=== PATIENT | male | born 1980 | race Hispanic/Latino ===

== ENCOUNTER 2017-08-09 00:55 | Inpatient (IN) | payer MEDICAID, OTHER ==
--- NOTE | 2017-08-09 01:07 | C.PDOC ---
History Of Present Illness 37 year old male who presents to the ER as a transfer from [facility] for psychiatric admission. Denies physical complaints at this time. Chief Complaint (Nursing): Psychiatric Evaluation History Per: Patient History/Exam Limitations: no limitations Onset/Duration Of Symptoms: Days Current Symptoms Are (Timing): Still Present Suicide/Self Injury Attempted (Context): None Modifying Factor(s): None Involuntary Hold By: None Recent travel outside of the [place]: No Past Medical History Reviewed: Historical Data, Nursing Documentation, Vital Signs Vital Signs: Last Vital Signs Temp 98.4 F 08/09/17 01:01 Pulse 72 08/09/17 01:01 Resp 18 08/09/17 01:01 BP 130/82 08/09/17 01:01 Pulse Ox 100 08/09/17 01:01 Surgical History: No Surg Hx Family History: States: Unknown Family Hx Review Of Systems Constitutional: Negative for: Fever, Chills Gastrointestinal: Negative for: Nausea, Vomiting, Diarrhea Physical Exam - Physical Exam Appears: Non-toxic, No Acute Distress Skin: Normal Color, Warm, Dry Head: Atraumatic, Normacephalic Oral Mucosa: Moist Chest: Symmetrical, No Tenderness Cardiovascular: Rhythm Regular, No Murmur Respiratory: Normal Breath Sounds, No Rales, No Rhonchi, No Wheezing Gastrointestinal/Abdominal: Soft, No Tenderness Neurological/Psych: Oriented x3, Normal Speech, Normal Cognition ED Course And Treatment Progress Note: Crisis notified. Disposition Discussed With : Matthew Christine Doctor Will See Patient In The: Hospital Counseled Patient/Family Regarding: Diagnosis - Disposition Disposition: HOSPITALIZED Disposition Time: 01:06 Condition: STABLE Forms: [facility] (Burkinan) - POA Present On Arrival: None - Clinical Impression Clinical Impression: Depressive disorder, Opiate abuse, continuous - Scribe Statement The provider has reviewed the documentation as recorded by the Scribe Rajan Morales All medical record entries made by the Scribe were at my direction and personally dictated by me. I have reviewed the chart and agree that the record accurately reflects my personal performance of the history, physical exam, medical decision making, and the department course for this patient. I have also personally directed, reviewed, and agree with the discharge instructions and disposition.
--- NOTE | 2017-08-09 01:49 | PCM.BM ---
<Pedrito Russo - Last Filed: 08/09/17 01:47> Treatment Plan Problems - Problems identified on initial assessmt Depression Date Initiated: 08/09/17 Time Initiated: 01:40 Assessment reference: NA Status: Active Suicidal Ideation Date Initiated: 08/09/17 Time Initiated: 01:40 Assessment reference: NA Status: Active Substance Abuse Date Initiated: 08/09/17 Time Initiated: 01:40 Assessment reference: NA Status: Active Treatment assets and liabiliti Patient Assests: cooperative, self-reliant, ADL independent, physically healthy Patient Liabilities: financial problems, poor support system, substance abuse - Milieu Protocol Maintain good personal hygiene: daily Encourage regular showers, daily Remind patient to perform daily oral care, daily Assist patient to perform ADL's Maintain personal safety: every shift Educate patient to report safety concerns to staff, every shift Monitor environment for contraband/sharps Medication safety: Monitor for expected outcome, potential side effects: every shift, Assess barriers to learning: every shift, Assess readiness for medication education: every shift <Jyoti Jackson - Last Filed: 08/10/17 11:18> Family Contact Family involvement: Famliy/SO not involved - Goals for Treatment Patient goals for treatment: "I want to go to rehab." Discharge/Continuing Care - Education Needs Education Needs: Patient Medication, Patient Coping Skills, Patient Placement options, Patient Community resources - Discharge Discharge Criteria: Tolerates medication w/o severe side effects, No longer exhibiting s/s of withdrawal - Treatment Team Participation Discussed with Family/SO: No Was Patient/Family/SO present at Treatment Team Meeting: Yes <Anup Jamil - Last Filed: 08/10/17 11:20> - Diagnosis (1) Bipolar disorder, curr episode mixed, severe, w/o psychotic features Status: Acute Interventions: 08/10/17 11:20 * Assess/adjust medications daily and /or as needed * See patient on an individual basis 7x/week to assess level of manic behaviors and stability * Discuss risks, benefits, side effects and alternatives of medications * (2) Opioid dependence Status: Acute Interventions: 08/10/17 11:20 * Assess 7x/week regarding severity of withdrawal * Educate regarding risks, benefits, side effects and alternatives of medications * Use Motivational Interviewing for abstinence * Use CBT for relapse prevention * Medication management for withdrawal symptoms * Encourage medication assisted treatment *
--- NOTE | 2017-08-09 09:50 | PCM.PSYCH ---
Initial Psychiatric Evaluation - Initial Psychiatric Evaluation Type of Admission: Voluntary Legal Status: Capacity Chief Complaint (in patient's own words): "I had a breakdown." History of Present Illness and Precipitating Events: Pt. is seen, chart reviewed, and case discussed with staff. This is a 37 y/o male who presents with suicidal ideation and history of multiple substance abuse. As per pt., the psychiatrist at [facility] advised that he go to detox, and during the interview, pt. reported to having attempted suicide and was therefore, admitted inpatient. Pt. reports the suicidal and homicidal ideation started 3-4 days ago, when he found that that his " was having an affair." He reports to having injected "draino ," bleach, and amphetamines 4 days ago in attempt to commit suicide. After the injection, pt. claims he had some cramps and palpitations and just fell asleep. He denies being hospitalized for the suicide attempt. Also, he attributes part of his suicidal ideation to his father's actual suicide in 2012, where he experienced his father shooting himself with a gun while talking to the pt. on the phone. Pt. reports to using 3 mg of benzodiazepines, once, daily for 10 years. He also reports to using 20 mg of Adderall, 3x/day. Pt. also reports to using marijuana sporadically and 0.5g of cocaine for the past couple days. His longest period of sobriety was for 18 months. Pt. claims he has been clean until the incident 3 -4 days ago, where he relapsed with 10 bags of heroin IV over the past 1.5 days. Pt. reports he has been attending the [facility] in [place], [place] for almost a year now. He reports to seeing Dr. Nate Roman (?) in [place], [place] for his prescriptions for Tourettes, Anxiety, and Depression. Pt. denies past history of detox and rehab. Pt. claims he tried to cut down on methadone 2mg/wk. until he reached 50 mg last Tuesday, so that he would be eligible for detox. Pt. currently has withdrawal sxs-hot/cold, sweat, restless leg, insomnia. He reports to having visual and auditory hallucinations, where he finds himself talking to someone who doesn't exist. He also reports to having delusions of something watching and following him. He admits to having racing thoughts, where his "mind runs faster than I can process." When he is having these thoughts, he claims that his "eyes hurt" and that he "cannot hear." These sxs. are not worse when lying down. Pt. also reports to not having slept for the past 93 hrs. After care discussed. PMH: denies Past Psych Hx: Tourette, anxiety, depression (was on Ativan 1mg, Adderall 20mg, Klonapin; meds discontinued since ) Allergies: denies Legal: denies probation, parole (except his chart indicates a court date planned in August) Family Psych Hx: father killed himself w/ gun in 2012; mother used drugs since his and has suicidal ideation Social Hx: ; lives by himself; 1 child (19 months), taken care of by mother; works at [employer] Current Medications: Active Medications Generic Name Dose Route Start Last Admin Trade Name Freq PRN Reason Stop Dose Admin Hydroxyzine HCl 50 mg 08/09/17 01:43 Atarax PO Q6 PRN Anxiety Trazodone HCl 50 mg 08/09/17 01:43 Desyrel PO HS PRN Sleep Past Psychiatric History - Past Psychiatric History Previous Treatment History: None Pertinent Medical Hx (Current Medical&Sleep Prob, Allergies): Allergies Allergy/AdvReac Type Severity Reaction Status Date / Time No Known Allergies Allergy Unverified 08/09/17 01:08 No Known Home Med 08/09/17 Review of Systems - Review of Systems All systems: reviewed and no additional remarkable complaints except - Psychiatric Psychiatric: Anxiety, Irritability, Mood Swings, Paranoia, Suicidal Ideation Mental Status Examination - Personal Presentation Personal Presentation: Looks stated age - Affect Affect: Constricted, Depressed - Motor Activity Motor Activity: Calm - Reliability in Providing Information Reliability in Providing Information: Fair - Speech Speech: Organized - Mood Mood: Depressed, Anxious - Formal Thought Process Formal Thought Process: Hallucinations, Delusions, Paranoia - Hallucinations/Delusions Hallucinations: Visual, Auditory Delusions: Persecution - Obsessions/Compulsions Obsessions: No Compulsions: No - Cognitive Functions Orientation: Person, Place, Situation, Time Sensorium: Alert Attention/Concentration: Attentive Abstract Thinking: [place] Estimate of Intelligence: Below average Judgement: Imparied, as evidence by: Poor judgement, Imparied, as evidence by: Lack of insight into illness - Risk Risk: Suicidal, Withdrawal, Diminished functioning DSM 5 DX - DSM 5 DSM 5 Diagnosis: Bipolar disorder mixed severe with psychotic features Opioid use disorder severe Opioid withdrawal Sedative/Hypnotics use disorder severe Sedative/Hypnotics withdrawal - Recommended/Plan of Treatment Treatment Recommendations and Plan of Treatment: Bipolar disorder mixed severe with psychotic features CBT Psychoeucation Supportive therapy, group therapy, individual therapy Depakote 250 mg PO BID Trazodone 50 mg pO QHS Opioid use disorder severe CBT for relapse prevention Psychoeducation Supportive therapy, individual therapy Use HI for abstinence Opioid withdrawal Methadone taper Support and psychoeducation daily Attend group activities daily Consider and encourage MAT Refer to after care. Sedative/Hypnotics use disorder severe Sedative/Hypnotics withdrawal CBT for relapse prevention Psychoeducation Supportive therapy, individual therapy Use HI for abstinence Ativan 1 mg pO Q 6 hr prn Projected ELOS: 6-7 days - Smoking Cessation Smoking Cessation Initiated: No
[2017-08-09] MEDS: Divalproex 250 mg DR Tab PO SCH ×2 (11:03→17:51)
[2017-08-10] MEDS: Divalproex 250 mg DR Tab PO SCH ×2 (09:37→17:22)
--- NOTE | 2017-08-10 11:14 | PCM.PYCHPN ---
Psychiatric Progress Note - Psychiatric Progress Note Patient seen today, length of contact: 15 min. Patient Chief Complaint: "I feel sick." Problems Identified/Issues Discussed: Pt. is seen, chart reviewed, and case discussed with staff. Pt. reports he is having bad withdrawal sxs.--hot/cold feelings, lethargic, and depressed. He denies visual and auditory hallucinations and denies suicidal and homicidal ideation. Pt. reports to being very anxious and irritable. Pt. claims he cannot sleep and has no appetite. He reports to having racing thoughts when he first woke up, but says the thoughts have "calmed down now." Symptoms are improving, but needs more time to stabilize. No SEs from medications, risks discussed. After care discussed, support and psychoeducation given. His plan is to go to detox and then 28-day inpatient rehab. Mental Status Examination - Cognitive Function Orientation: Person, Place, Situation, Time Memory: Intact Attention: Poor Concentration: Poor Association: WNL Fund of Knowledge: WNL - Mood Mood: Depressed, Anxious - Affect Affect: Constricted, Depressed - Speech Speech: Appropriate - Formal Thought Process Formal Thought Process: No Impairment - Suicidal Ideation Suicidal Ideation: No - Homicidal Ideation Homicidal Ideation: No Goal/Treatment Plan - Goal/Treatment Plan Need for Continued Stay: Remain at risks for inpatient hospitalization, Severe depression anxiety, Discharge may exacerbated symptoms, Severe functional impairment Progress Toward Problem(s) and Goals/Treatment Plan: Bipolar disorder mixed severe with psychotic features CBT Psychoeucation Supportive therapy, group therapy, individual therapy Depakote 250 mg PO BID Trazodone 50 mg pO QHS Opioid use disorder severe CBT for relapse prevention Psychoeducation Supportive therapy, individual therapy Use MA for abstinence Opioid withdrawal Methadone taper Support and psychoeducation daily Attend group activities daily Consider and encourage MAT Refer to after care. Sedative/Hypnotics use disorder severe Sedative/Hypnotics withdrawal CBT for relapse prevention Psychoeducation Supportive therapy, individual therapy Use MA for abstinence Ativan 1 mg pO Q 6 hr prn - Smoking Cessation Smoking Cessation Initiated: No
[2017-08-10 16:10] VITALS: O2SAT 95
[2017-08-11] MEDS: Divalproex 250 mg DR Tab PO SCH ×2 (09:34→17:57)
--- NOTE | 2017-08-11 09:58 | PCM.PYCHPN ---
Psychiatric Progress Note - Psychiatric Progress Note Patient seen today, length of contact: 15 min. Patient Chief Complaint: "I'm still withdrawing." Problems Identified/Issues Discussed: Pt. is seen, chart reviewed, and case discussed with staff. Pt. reports he is still having withdrawal sxs.--hot/cold, sneezing, CONLEY, leg pain. Pt. claims methadone is not really helping. Pt. reports he did not sleep well though the night. Pt. denies suicidal and homicidal ideation. Pt. reports to having visual and auditory hallucination last night, where he saw/heard someone kicking his door, but no one was there. Pt. states his anxiety and irritability "comes in waves," and has racing thoughts of "anger." Pt. reports he feels hopeless at times and has no appetite. Symptoms are improving, but needs more time to stabilize. No SEs from medications, risks discussed. After care discussed, support and psychoeducation given. His plan is to make more phone calls to outpatient treatment programs. Medication Change: Yes (Ativan taper) Medical Record Reviewed: Yes Mental Status Examination - Cognitive Function Orientation: Person, Place, Situation, Time Memory: Intact Attention: Poor Concentration: Poor Association: WNL Fund of Knowledge: WNL - Mood Mood: Depressed, Anxious - Affect Affect: Constricted, Depressed - Speech Speech: Appropriate - Formal Thought Process Formal Thought Process: Hallucinations - Suicidal Ideation Suicidal Ideation: No - Homicidal Ideation Homicidal Ideation: No Goal/Treatment Plan - Goal/Treatment Plan Need for Continued Stay: Remain at risks for inpatient hospitalization, Severe depression anxiety, Discharge may exacerbated symptoms, Severe functional impairment Progress Toward Problem(s) and Goals/Treatment Plan: Bipolar disorder mixed severe with psychotic features CBT Psychoeucation Supportive therapy, group therapy, individual therapy Depakote 250 mg PO BID Trazodone 50 mg pO QHS Opioid use disorder severe CBT for relapse prevention Psychoeducation Supportive therapy, individual therapy Use SC for abstinence Opioid withdrawal Methadone taper Support and psychoeducation daily Attend group activities daily Consider and encourage MAT Refer to after care. Sedative/Hypnotics use disorder severe Sedative/Hypnotics withdrawal CBT for relapse prevention Psychoeducation Supportive therapy, individual therapy Use SC for abstinence Ativan 1 mg pO Q 6 hr prn
[2017-08-12 07:41] VITALS: BP 132/84; PULSE 111; RESP 19; TEMP 97.8
[2017-08-12] MEDS: Divalproex 250 mg DR Tab PO SCH (09:08)
--- NOTE | 2017-08-12 09:39 | PCM.PYCHDC ---
Mental Status Examination - Mental Status Examination Orientation: Person, Place, Time Memory: Intact Mood: Neutral Affect: Constricted Speech: Soft Attention: WNL Concentration: WNL Association: WNL Fund of Knowledge: WNL Formal Thought Process: No Impairment Description of patient's judgement and insight: good, fair Psychotic Thoughts and Behaviors: denies any AVH Suicidal Ideation: No Current Homicidal Ideation?: No Discharge Summary - Discharge Note Reason for Hospitalization: Pt. is seen, chart reviewed, and case discussed with staff. This is a 37 y/o male who presents with suicidal ideation and history of multiple substance abuse. As per pt., the psychiatrist at [facility] methadone clinic advised that he go to detox, and during the interview, pt. reported to having attempted suicide and was therefore, admitted inpatient. Pt. reports the suicidal and homicidal ideation started 3-4 days ago, when he found that that his " was having an affair." He reports to having injected "draino ," bleach, and amphetamines 4 days ago in attempt to commit suicide. After the injection, pt. claims he had some cramps and palpitations and just fell asleep. He denies being hospitalized for the suicide attempt. Also, he attributes part of his suicidal ideation to his father's actual suicide in 2012, where he experienced his father shooting himself with a gun while talking to the pt. on the phone. Pt. reports to using 3 mg of benzodiazepines, once, daily for 10 years. He also reports to using 20 mg of Adderall, 3x/day. Pt. also reports to using marijuana sporadically and 0.5g of cocaine for the past couple days. His longest period of sobriety was for 18 months. Pt. claims he has been clean until the incident 3 -4 days ago, where he relapsed with 10 bags of heroin IV over the past 1.5 days. Pt. reports he has been attending the [facility] in [place], [place] for almost a year now. He reports to seeing Dr. Nate Roman (?) in [place], [place] for his prescriptions for Tourettes, Anxiety, and Depression. Pt. denies past history of detox and rehab. Pt. claims he tried to cut down on methadone 2mg/wk. until he reached 50 mg last Tuesday, so that he would be eligible for detox. Pt. currently has withdrawal sxs-hot/cold, sweat, restless leg, insomnia. He reports to having visual and auditory hallucinations, where he finds himself talking to someone who doesn't exist. He also reports to having delusions of something watching and following him. He admits to having racing thoughts, where his "mind runs faster than I can process." When he is having these thoughts, he claims that his "eyes hurt" and that he "cannot hear." These sxs. are not worse when lying down. Pt. also reports to not having slept for the past 93 hrs. Consultations:: List each consultation separately and include: 1. Reason for request. 2. Findings. 3. Follow-up Summary of Hospital Course include:: 1. Description of specific treatment plan utilized for patients during their course of treatmen. 2. Summarize the time- course for resolution of acute symptoms and/or regressed behaviors. 3. Describe issues identified and worked on during hospitalization. 4. Describe medication utilized. 5. Describe medical problems identified and treated. 6. Reassessment of suicide risk Summary of Hospital Course: During the course of his stay, patient (pt) started progressively improving and he no longer remained irritable, depressed, and suicidal. His mood was improved and he started attending groups and meetings and started socializing. Patient denied any feelings of hopelessness, helplessness, and worthlessness, denied any problem with the sleep or appetite, denied suicidal ideation or homicidal ideation. Pt denied any auditory or visual hallucinations. Some changes were made in his current medications and patient was discharged on following medications. He tolerated these medications very well and denied any side effects. CBT and AK were used. - Diagnosis (1) Bipolar disorder, curr episode mixed, severe, w/o psychotic features Status: Acute (2) Opioid dependence Status: Acute - Final Diagnosis (DSM 5) Condition upon Discharge: STABLE DSM 5: Bipolar disorder mixed severe with psychotic features Opioid use disorder severe Opioid withdrawal Sedative/Hypnotics use disorder severe Disposition: HOME/ ROUTINE Follow-up Treatment Plan: Education: Pt was educated and counseled about the risks and benefits of taking and not taking medications. Pt was educated and counseled about the risks of drinking and abusing drugs. Pt was educated and counseled to go to the ER or call 911 if pt develop suicidal ideation or homicidal ideation, worsening of symptoms or severe side effects of the meds. Prescriptions/Medication Reconciliation: Divalproex [Depakote DR] 250 mg PO BID #60 tcp traZODone [Desyrel] 50 mg PO HS PRN #30 tab PRN Reason: Sleep - Smoking Cessation Smoking Cessation Medication prescribed: No - Antipsychotic Medications Pt discharged on 2 or more routine antipsychotic medications: No
== END 2017-08-12 09:50 | disposition home or self-care (01) | DRG 885 ==
LOC: C.ER 00:55 → C.5E 01:30
PROVIDERS: ADMIT Psychiatry & Neurology Psychiatry; ATTEND Psychiatry & Neurology Psychiatry
PROC: HZ2ZZZZ Detoxification Services for Substance Abuse Treatment (ICD-10-PCS; principal; 2017-08-09)
PROC: HZ52ZZZ Individual Psychotherapy for Substance Abuse Treatment, Cognitive-Behavioral (ICD-10-PCS; 2017-08-09)
PROC: HZ42ZZZ Group Counseling for Substance Abuse Treatment, Cognitive-Behavioral (ICD-10-PCS; 2017-08-09)
PROC: HZ59ZZZ Individual Psychotherapy for Substance Abuse Treatment, Supportive (ICD-10-PCS; 2017-08-09)
PROC: HZ56ZZZ Individual Psychotherapy for Substance Abuse Treatment, Psychoeducation (ICD-10-PCS; 2017-08-09)
PROC: HZ46ZZZ Group Counseling for Substance Abuse Treatment, Psychoeducation (ICD-10-PCS; 2017-08-09)
DX: F31.64 Bipolar disorder, current episode mixed, severe, with psychotic features (principal); R45.851 Suicidal ideations; F95.2 Tourette's disorder; F11.23 Opioid dependence with withdrawal; F13.10 Sedative, hypnotic or anxiolytic abuse, uncomplicated; F14.10 Cocaine abuse, uncomplicated; F12.10 Cannabis abuse, uncomplicated; F41.8 Other specified anxiety disorders